=== PATIENT | female | born 1970 | race Caucasian/White ===

== ENCOUNTER → 2021-12-06 12:11 | Outpatient (BNVA) | payer MEDICAID, SELFPAY | PROVIDERS: Family Provider Family Medicine; PCP Family Medicine; Visit Provider Surgery | DX: Z20.822 Contact with and (suspected) exposure to COVID-19 (principal) | CPT/HCPCS: 87635 ==

== ENCOUNTER 2021-12-08 09:12 | Day surgery (SDC) | payer MEDICAID, SELFPAY ==
[2021-12-05 10:48] VITALS: BMI 51.2
--- NOTE | 2021-12-08 10:45 | P.HP_ITS ---
Same Day Surgery H&P Indication for Procedure/HPI DATE OF PROCEDURE: December 08, 2021 CHIEF COMPLAINT/INDICATIONFOR SURGICAL PROCEDURE: Obesity and screening colonoscopy PREOP DIAGNOSIS: Acid reflux associated with morbid obesity and screening colonoscopy PLANNED PROCEDURE: Operation Date: 12/08/21 10:45 Proposed Procedures p EGD/Colon 17385 E66.9(Not Applicable) - Hayden Lo MD s Colonoscopy 26708 Z12.11(Not Applicable) - Hayden Lo MD 08/03/2021. This is a pleasant 51 years old female patient presents to my practice with concerns about her morbid obesity status, current weight 314 pounds with a BMI 57.4. Obesity class III (equal or greater than 40). Obesity related comorbidities hypothyroidism, joint pain, GERD, and anxiety and depression.? Patient reports that she snores at night and she gets bouts of hypersomnia through the day, never been tested for obstructive sleep apnea related to obesity. Previous Bariatric surgery not applicable Patient's quality of life affected in a nonpositive way. Patient has been struggling with weight and has tried different modalities without obvious success, patient comes today showing interest in Bariatric surgery as a sustained option for obesity management Interim history 09/14/2021. She comes today and continues to struggle with her weight, she lost 20 pounds, patient reports that she has been undergoing supervised medical weight loss.? Reports history of GERD associated with morbid obesity status.? Also she is due for screening colonoscopy.? Patient's current weight to 98 pounds and a BMI 54.5 10/14/2021 Patient comes today and she is down to 283 pounds with a BMI 51.7, patient continues to be on a low calorie diet and walks every day.? Patient made up her mind and she decided to proceed with laparoscopic vertical sleeve gastrectomy.? Patient was reminded about the importance to be updated on her Pap smear and mammogram as well as obtaining sleep studies as she has been reporting snoring at night.? Pending psych and nutrition evaluation. Interim history 12/08/2021 Patient comes today for diagnostic EGD due to her acid reflux associated with morbid obesity and screening colonoscopy ROS All systems have been reviewed negative except as per the above or per problem list Medications/Allergies* Home Medications Medication Instructions Recorded Confirmed Type dicyclomine 20 mg tablet 20 mg PO BID 08/03/21 12/05/21 History duloxetine 30 mg capsule,delayed 30 mg PO DAILY 08/03/21 12/05/21 History release (Cymbalta) furosemide 40 mg tablet (Lasix) 40 mg PO BID 08/03/21 12/05/21 History gabapentin 300 mg capsule 300 mg PO TID 08/03/21 12/05/21 History levothyroxine 175 mcg tablet 175 mcg PO DAILY 08/03/21 12/05/21 History (Euthyrox) potassium chloride 20 mEq 20 meq PO DAILY 08/03/21 12/05/21 History tablet,extended release tizanidine 2 mg capsule 2 mg PO TID PRN 08/03/21 12/05/21 History Allergies/Adverse Reactions Allergy/AdvReac Type Severity Reaction Status Date / Time Penicillins Allergy Severe ALGY-Anaphy Verified 10/14/21 13:41 laxis Pertinent History/Comorbid Conditions* Medical History (Updated 08/05/21 @ 06:17 by Hayden Lo MD) BMI 50.0-59.9, adult Morbid obesity Family History (Updated 08/03/21 @ 13:32 by Cheyenne Perales RN) Denies family history of Anesthesia complication Bleeding disorder Pertinent Exam Findings alert, oriented x 3 and operative site marked (Abdominal examination nontender nondistended soft) Recommendations Surgery/Procedure today (EGD and colonoscopy) Other Plans: Plan of care; After thorough history and physical examination and reviewing the chart, plan to perform a diagnostic esophagogastroduodenoscopy and screening colonoscopy with possible biopsy and possible polypectomy. I discussed with the patient in detail the risks,benefits,alternatives and indications.The risk of aspiration, bleeding, soft tissue injury, perforation of the stomach/esophagus/colon and other potential concomitant complications were explained to the patient in details also the potential need for Thoracotomy and or Laproscoy/Laparotomy to repair any related complications including but not limited to colectomy and or Closotomy. The patient understood this well and did agree to proceed. Rationale was carefully and clearly discussed with the patient.Appropriate informed consent have been reviewed and signed Verbal and written Instructions were given to the patient for colonoscopy prep Coding Level of Care Code Acute Supervisory Lifeguard for Jaime Mayo
[2021-12-08 10:47] VITALS: BP 145/79; PULSE 78; RESP 18; TEMP 36.2; O2SAT 94
[2021-12-08] MEDS: sodium chloride 0.9% 1,000 ML 30 ML IV (10:59)
--- NOTE | 2021-12-08 11:05 | ANES.PREANE2 ---
Pre-Anesthetic Assessment Height/Weight: Height 1.57 m Weight 127.006 kg Temp Pulse Resp BP Pulse Ox 97.1 F L 78 18 145/79 94 12/08/21 10:47 12/08/21 10:47 12/08/21 10:47 12/08/21 10:47 12/08/21 10:47 Preop Diagnosis: Acid reflux associated with morbid obesity and screening colonoscopy Operation Date: 12/08/21 10:45 Proposed Procedures p EGD/Colon 73308 E66.9(Not Applicable) - Hayden Lo MD s Colonoscopy 06438 Z12.11(Not Applicable) - Hayden Lo MD Familial anesthetic complications: None Was Beta Geovani taken within 24 hours: N/A Was Clonidine taken within 24 hours: N/A Last intake: Intake Last Liquid Date 12/07/21 Last Liquid Time 20:00 Last Solid Date 12/06/21 Last Solid Time 17:00 Social No alcohol and No tobacco Exam alert, oriented x 3, clear to auscultation bilaterally and regular rate & rhythm Airway Submandibular: within normal limits Cervical ROM: within normal limits Mallampati: Class I History/ROS No significant complaints Pulmonary Exertional Dyspnea and Sleep Apnea CV/HEM Hypertension GI Gastroesophageal Reflux Disease Metabolic Morbid Obesity and Thyroid Disease Musc/skel Osteoarthritis/DJD and None reported Anesthetic Plan ASA status: 3 (Super morbid obese female wih htn and JONATHAN) Anesthesia: Anesthesia Evaluation and MAC Other: I discussed with the patient risks, goals, and benefits of MAC and general anesthesia. We discussed spectrum of MAC anesthesia including conversion to general as well as possibility of recall of intraoperative stimuli including discomfort/pain. Patient agrees to proceed with MAC. Medications/Allergies Home Medications Medication Instructions Recorded Confirmed Last Taken Type dicyclomine 20 mg tablet 20 mg PO BID 08/03/21 12/08/21 11/08/21 History duloxetine 30 mg capsule,delayed 30 mg PO DAILY 08/03/21 12/08/21 12/07/21 History release (Cymbalta) furosemide 40 mg tablet (Lasix) 40 mg PO BID 08/03/21 12/08/21 12/07/21 History gabapentin 300 mg capsule 300 mg PO TID 08/03/21 12/08/21 12/07/21 History levothyroxine 175 mcg tablet 175 mcg PO DAILY 08/03/21 12/08/21 12/07/21 History (Euthyrox) potassium chloride 20 mEq 20 meq PO DAILY 08/03/21 12/08/21 12/07/21 History tablet,extended release tizanidine 2 mg capsule 2 mg PO TID PRN 08/03/21 12/08/21 12/07/21 History Allergies Allergy/AdvReac Type Severity Reaction Status Date / Time Penicillins Allergy Severe ALGY-Anaphy Verified 10/14/21 13:41 laxis Current Medications Generic Name Dose Route Start Last Admin Trade Name Freq PRN Reason Stop Dose Admin Sodium Chloride 1,000 mls @ 30 mls/hr 12/08/21 10:15 12/08/21 10:59 Sodium Chloride 0.9% IV 30 mls/hr .Q24H [place] Administration PFSH Anesthesia Medical History BMI 50.0-59.9, adult Morbid obesity Family History Denies family history of Anesthesia complication Bleeding disorder Data Anesthesia Cardiac Studies: No Data to Display
[2021-12-08 11:41] VITALS: BP 119/84; PULSE 66; RESP 18; TEMP 36.3; O2SAT 99
[2021-12-08 11:46] VITALS: BP 134/79; PULSE 62; RESP 18; O2SAT 96
[2021-12-08 12:00] VITALS: BP 137/79; PULSE 58; RESP 18; TEMP 36.3; O2SAT 96
--- NOTE | 2021-12-08 12:58 | ANE.PACU2 ---
Inpatient post-anesthesia follow up: Airway intact: Yes Vital signs: Temperature 97.3 F Pulse Rate 58 Respiratory Rate 18 Blood Pressure 137/79 Pulse Oximetry 96 Oxygen Delivery Me thod Room Air Oxygen Flow Rate Fraction of Inspir ed Oxygen Hydration adequate: Yes Nausea and vomiting: No Pain level: 1 Mental status: Baseline
[2021-12-09 06:11] LABS: H. Pylori / CLO Test Negative
== END 2021-12-08 12:13 | disposition home or self-care (01) ==
PROVIDERS: Visit Provider Surgery
PROC: 0DJ08ZZ Inspection of Upper Intestinal Tract, Via Natural or Artificial Opening Endoscopic (ICD-10-PCS; CPT 43235; principal; 2021-12-08 10:45)
PROC: 0DJD8ZZ Inspection of Lower Intestinal Tract, Via Natural or Artificial Opening Endoscopic (ICD-10-PCS; CPT 45378; 2021-12-08 10:45)
DX: Z12.11 Encounter for screening for malignant neoplasm of colon (principal); K29.70 Gastritis, unspecified, without bleeding; K29.80 Duodenitis without bleeding; K64.4 Residual hemorrhoidal skin tags; E66.01 Morbid (severe) obesity due to excess calories; Z68.43 Body mass index [BMI] 50.0-59.9, adult; K21.9 Gastro-esophageal reflux disease without esophagitis; I10 Essential (primary) hypertension; G47.33 Obstructive sleep apnea (adult) (pediatric)
CPT/HCPCS: 43239; 45378; 87077; J2704; J7030

== ENCOUNTER → 2022-04-12 09:47 | Outpatient (BNVA) | payer MEDICAID, SELFPAY | PROVIDERS: Visit Provider Surgery | DX: E66.01 Morbid (severe) obesity due to excess calories (principal); Z68.42 Body mass index [BMI] 45.0-49.9, adult; E88.81 Metabolic syndrome and other insulin resistance | CPT/HCPCS: 80053; 80061; 82310; 82607; 82652; 82728; 82746; 83540; 83550; 83735; 83970; 84425; 84443; 84630; 85025; 99024 ==

== ENCOUNTER 2022-04-25 12:43 | Observation (INO) | payer MEDICAID, SELFPAY ==
[2022-04-24 08:53] VITALS: BMI 47.5
--- NOTE | 2022-04-24 13:02 | ANES.PREANE2 ---
Pre-Anesthetic Assessment Height/Weight: Height 1.57 m Weight 117.934 kg Preop Diagnosis: Acid reflux associated with morbid obesity and screening colonoscopy Operation Date: 04/25/22 08:15 Proposed Procedures p Laparoscopic Gastric Sleeve w/ EGD 36302,05834/E66.01(Not Applicable) - Hayden Lo MD Familial anesthetic complications: none Was Beta Geovani taken within 24 hours: N/A Was Clonidine taken within 24 hours: N/A Social No alcohol and No tobacco Exam alert, oriented x 3, clear to auscultation bilaterally and regular rate & rhythm Airway Submandibular: within normal limits Cervical ROM: within normal limits Mallampati: Class II Pulmonary Sleep Apnea GI Gastroesophageal Reflux Disease gastritis Metabolic Morbid Obesity and Thyroid Disease Anesthetic Plan ASA status: 3 Anesthesia: General Medications/Allergies Home Medications Medication Instructions Recorded Confirmed Last Taken Type duloxetine 30 mg capsule,delayed 60 mg PO DAILY 08/03/21 04/24/22 04/24/22 History release (Cymbalta) furosemide 40 mg tablet (Lasix) 40 mg PO BID 08/03/21 04/24/22 04/24/22 History gabapentin 300 mg capsule 300 mg PO TID 08/03/21 04/24/22 04/24/22 History levothyroxine 175 mcg tablet 175 mcg PO DAILY 08/03/21 04/24/22 04/24/22 History (Euthyrox) potassium chloride 20 mEq 20 meq PO DAILY 08/03/21 04/24/22 04/24/22 History tablet,extended release tizanidine 2 mg capsule 4 mg PO TID PRN 08/03/21 04/24/22 04/24/22 History pantoprazole 40 mg tablet,delayed 40 mg PO DAILY #30 tab 03/27/22 04/24/22 04/24/22 Rx release (Protonix) meloxicam 15 mg tablet 15 mg PO DAILY 04/24/22 04/24/22 04/24/22 History Allergies Allergy/AdvReac Type Severity Reaction Status Date / Time Penicillins Allergy Severe ALGY-Anaphy Verified 04/13/22 16:24 laxis codeine Allergy Intermediate ALGY-Hives Verified 04/13/22 16:24 [facility] Anesthesia Medical History BMI 50.0-59.9, adult Morbid obesity Family History Denies family history of Anesthesia complication Bleeding disorder Social History Smoking and tobacco status: never smoked Female Reproductive History Date of last menstrual period: 11/17/20 Data Anesthesia Cardiac Studies: No Data to Display
[2022-04-25] VITALS (23 sets, daily range): BP systolic 130–173; BP diastolic 68–99; PULSE 65–105; RESP 12–19; TEMP 36.1–37.1; O2SAT 90–100
--- NOTE | 2022-04-25 07:00 | P.ANESUD_ITS ---
Pre-Anesthetic Update Pre-Anesthetic Assessment: Date of Surgery/Procedure: 04/25/22 Preop Thelma gnosis: Obesity and screening colonoscopy Proposed Procedure: Operation Date: 04/25/22 08:15 Proposed Procedures p Laparoscopic Gastric Sleeve w/ EGD 44945,33822/E66.01(Not Applicable) - Hayden Lo MD Any changes to Pre-Anesthetic Assessment?: No Last Intake: Intake Last Liquid Date 04/24/22 Last Liquid Time 22:00 Last Solid Date 04/04/22 Vitals: Temperature 97.0 F L 04/25/22 06:48 Temperature Source Temporal Artery S can 04/25/22 06:48 Pulse Rate 85 04/25/22 06:48 Respiratory Rate 18 04/25/22 06:48 Blood Pressure 130/84 04/25/22 06:48 Blood Pressure Reanna n 99 04/25/22 06:48 Pulse Oximetry 98 04/25/22 06:48 Oxygen Delivery Me thod 04/25/22 06:48 Exam: Pre-Anes Outpt Exam: alert, oriented x 3, clear to auscultation bilaterally and regular rate & rhythm Cardiac Studies: No Data to Display
[2022-04-25] MEDS: scopolamine 1.5 Patch 1 PATCH TRANSDERMA (07:06)
[2022-04-25] MEDS: sodium chloride 0.9% 1,000 ML 999 ML IV (07:07)
[2022-04-25] MEDS: acetaminophen 1,000 MG/100 ML PIGGYBACK 400 MG IV (07:08)
[2022-04-25] MEDS: pantoprazole 40 mg SDV IVP (07:08)
[2022-04-25] MEDS: heparin 5,000 unit/mL INJ 1 mL 5000 UNIT SUBCUT (07:12)
--- NOTE | 2022-04-25 08:23 | PC.NURSE ---
Nurse present in room for convo with Dr Lo and patient discussing options to proceed with procedure or wait some time for having more time on clear liquid diet. Patient elected to proceed with procedure today despite risk of aborting due to size of liver. Patient verbalized understanding.
--- NOTE | 2022-04-25 08:24 | W.PM.OPSUD ---
Surgery/Procedure H&P Update DATE OF PROCEDURE: April 25, 2022 DATE H&P PERFORMED: 04/12/22 H&P UPDATE INFORMATION: I have reviewed H&P completed within last 30 days, I have examined patient prior to procedure and Changes to prior documentation as noted here (Patient is down to 256 pounds) CHANGES TO PREVIOUS DOCUMENTATION: Patient understands that if the liver is enlarged that may hinder safe procedure I may abort the procedure. She understands the plan of care and agrees on that. PREOP DIAGNOSIS: Obesity PRIMARY INDICATION FOR PROCEDURE: The same PLANNED PROCEDURE: Operation Date: 04/25/22 08:15 Proposed Procedures p Laparoscopic Gastric Sleeve w/ EGD [id number],[id number]/E66.01(Not Applicable) - Hayden Lo MD
[2022-04-25] MEDS: ciprofloxacin 400 MG/200 ML PREMIX 200 MG IV (08:25)
--- NOTE | 2022-04-25 11:58 | PM.OP ---
Operative Report Date of procedure: April 25, 2022 Pre-op diagnosis: Preop Diagnosis Obesity Post-op findings: Extensive adhesions towards the pylorus with extensive vascularization Procedure done: 1-Laparoscopic vertical sleeve gastrectomy and intraoperative EGD 2-Extensive adhesiolysis exceeded 1 hour of the operative time Implants: Surgicel towards the distal part of the stomach Specimens removed/disposition: Subtotal gastrectomy with gastric sleeve, sutures marked proximal Surgeon: Hayden Lo MD Housekeeper Nanny: Surgical techmelissa Cruz Circulating nurse Salo Anesthesia: General (Patrick weems and Dr. Matt) Estimated blood loss (mL): 100 IV fluids (mL): 800 Urine output (mL): 250 Procedure: Patient was identified in the holding area, appropriate pharmacologic DVT prophylaxis was given and preoperative IV fluid hydration, patient was then taken to the operating room where the patient was placed in supine position, intubated by anesthesia prophylactic antibiotics were given per protocol, Time-out was done verifying the patient's name/date of /planned procedure and destination after the procedure, all were in agreement.SCDs confirmed to be functioning, and beta zahra protocol was confirmed. A Contreras catheter was inserted by the circulating nurse revealing clear urine. A foot board was applied to secure the patient while the patient is placed in reversed Trendelenburg, all pressure points were padded, and the patient was appropriately secured to the table, anesthesia was asked to rotate the table back and forth to verify that the patient is appropriately secured, and that was the case. The abdomen was prepped and draped under the usual sterile technique. A transverse incision was made with a 15 blade scalpel approximately 15 cm below the xiphoid process and 3 cm left of the midline. A 5 mm optical trocar port was placed under direct vision into the peritoneal cavity without initial evidence of injury to peritoneal structures upon entry. The peritoneal cavity was insufflated with carbon dioxide gas up to 15 mmHg pressure. A 45? angle laparoscopy was placed through the port into the peritoneal cavity there was no significant blood, fluid, or evidence of intra-abdominal injury under direct visualization, Longer trocars were then used; a 12 mm trocar port was placed in the right epigastric region and a fourth 5 mm trocar port was placed in the mid epigastric region more caudad than and medial to the previous port. A 5 mm trocar port was placed in the left lateral flank and additional 5 mm trocar was inserted midway between the left lateral flank trocar and the initial 5 mm trocar. There after the index 5 mm trocar was switched to a 12 mm trocar under direct visualization after extending the skin incision. I lifted the omentum up to make sure there were no injuries encountered from the initial trocar insertion, the underlying transverse colon and small bowel viscera were normal. Noticed that the patient had extensive adhesions towards the right side of the upper abdomen and towards the pyloric area from previous open cholecystectomy, extensive adhesiolysis took place under direct visualization using Enseal device exceeding 1 hour of the operative time. There was a bleeding vessel towards the the pylorus that was clipped using 5 mm clips and hemostasis was appropriately secured. And pieces of Surgicel was kept at the end of the procedure at this area. A subxiphoid stab incision was made and dissection into the peritoneum with 5 mm obturator. A grasping laparoscopic clamp was inserted through here and clamped to the right alex of the diaphragm to elevate the liver for the entirety of the case. All trocars inserted were long arc trocars due to the thick layer of subcutaneous tissue that the patient has.Patient was then placed in the reversed Trendelenburg. Following this, the greater curvature of the stomach was freed from the omentum using the ENSEAL device. This division included the short gastric vessels proximally. This dissection was carried from approximately 4 cm-6 cm proximal to the pylorus and extending all the way up to the angle of Hiss. During this process the posterior aspect of the stomach was mobilized from the underlying peritoneum and the posterior aspect of the stomach was well exposed. With the greater curvature of the stomach exposed from within 4-6 cm of the pylorus and extending to the angle of Hiss, which also included the posterior stomach, a 40 Burkinan standard template passed under direct vision down the esophagus, stomach, and into the first part of the duodenum by the anesthesia provider and under direct guidance and visualization by me, via the laparoscopy. Using the template 40 Burkinan aligned along the lesser curvature of the stomach and all the way to the first part of the Duodenum, the 40 Burkinan Bougie was used as a template the laparoscopic vertical gastric sleeve was performed starting from a point about 5 cm from the pylorus along the greater curvature. Using the [place] Laparoscopic KERON linear cutting stapler with [place] Endopath enforcement, a series of susannah were used to transect the stomach in a vertical fashion along the left side of the template. Through the entire division of the stomach using the staplers, the template was always checked to be in good place and well aligned to the lesser curvature while dividing the stomach. This was carried all the way to the angle of Hiss. [place] 60 mm Green loads were used for the distal third of the stomach and Gold loads were used for the more proximal part of the stomach and then blue loads with reinforcement. All staplers were reinforced by Endopath. The staple line along the remaining tubularized stomach was tested for leaks and bleeding under direct vision as the 40 Burkinan template was exchanged (and there was no evidence of blood on the tip of the template) by a standard diagnostic EGD via the mouth by my me after I scrubbed out, insufflation was achieved using CO2 gas and the staple line submerged under saline, meanwhile a clamp was applied distally onto the end of the tubularized stomach to allow insufflation test for leak. There was no evidence of leak .There was adequate hemostasis along the staple line.EGD was taken out at this point after deflation of the tubularized stomach. I scrubbed the back in. The transected partial stomach, which included the greater curvature, was removed from the peritoneum through the first 12 mm trocar site, and was sent for permanent pathology. Prior to closure of the fascia. A final look laparoscopy identified no injuries or bleeding. Bilateral TAP (transversus abdominous plain peripheral nerve block) block using Exparel 20 mL Exparel,40 ml Normal saline,20 ml bupivacaine 0.25% 30 mL on each side injected, 20 mL injected the port sites. An interrupted #1 PDS suture on a granny needle suture passer was used to close the right epigastric and the other 12 mm trocar left of the midline fascial defects under direct visualization. The other trocars were removed under direct vision and no evidence of bleeding was identified. The pneumoperitoneum was decompressed. All skin incisions were irrigated copiously with saline, then closed with susannah, followed by application of sterile dressings. The patient was extubated and taken to the recovery room with normal vital signs. Contreras catheter was maintained All counts of instruments, sponges and needles were completed at the end of the procedure I was present for the whole entire procedure
[2022-04-25] MEDS: ondansetron 2 mg/ML SDV 2 mL 4 MG IVP (12:46)
--- NOTE | 2022-04-25 17:06 | ANE.PACU2 ---
Inpatient post-anesthesia follow up: Airway intact: Yes Vital signs: Temperature 98.0 F Pulse Rate 101 Respiratory Rate 12 Blood Pressure 132/74 Pulse Oximetry 92 Oxygen Delivery Me thod Room Air Oxygen Flow Rate 6 Fraction of Inspir ed Oxygen Hydration adequate: Yes Nausea and vomiting: No Pain level: 1 Mental status: Baseline
[2022-04-25] MEDS: lactated ringers 1,000 ML 125 ML IV (20:55)
[2022-04-26] VITALS (7 sets, daily range): BP systolic 132–151; BP diastolic 74–89; PULSE 90–102; RESP 12–16; TEMP 36.7–37.7; O2SAT 91–92
[2022-04-26] MEDS: heparin 5,000 unit/mL INJ 1 mL 5000 UNIT SUBCUT ×2 (05:00→13:46)
[2022-04-26] MEDS: lactated ringers 1,000 ML 125 ML IV (05:00)
[2022-04-26 05:10] LABS: Hematocrit 40.9 % (37.0-47.0); Hemoglobin 13.7 g/dL (11.5-15.3)
[2022-04-26 05:28] LABS: Anion Gap 14.2 (5-19); Blood Urea Nitrogen 20 mg/dL (6-20); Calcium 9.3 mg/dL (8.5-10.5); Carbon Dioxide 26 mmol/L (22-29); Chloride 103 mmol/L (98-107); Glomerular Filtration Rate 65.5 mL/min (90-130); Glucose 121 mg/dL (65-115); Osmolality Calculated 292 mOsm/kg (285-295); Potassium 4.2 mmol/L (3.5-5.1); Sodium 139 mmol/L (136-145)
[2022-04-26 06:30] LABS: Glucose Point of Care 118 mg/dL (70-110)
--- NOTE | 2022-04-26 07:24 | P.PN_ITS ---
Subjective Subjective: Patient overall doing well and denies complaints. Adequate urine output and stable vital signs. Medications: Reviewed: Yes Vitals/I&O/Wt Last Vital Signs Temp 99.8 F H 04/26/22 04:52 Pulse 90 04/26/22 06:00 Resp 16 04/26/22 04:52 BP 151/88 04/26/22 04:52 Pulse Ox 91 04/26/22 04:52 04/25/22 04/26/22 04/26/22 22:59 06:59 14:59 Intake Total 1100 / 1500 1200 / 2700 Output Total 1350 / 1950 Balance 1100 / 900 -150 / 750 Weight last 48 hrs Weight 261 lb 11.2 oz Weight 258 lb Weight 260 lb Physical Exam Narrative: Patient is conscious alert oriented X3 No apparent distress BMI 48 Head and neck examination PERRLA no masses no cervical lymphadenopathy no jaundice Cardiac examination audible S1-S2 no murmurs no gallops no arrhythmias Chest is clear bilateral,abscence of Rhonchi or wheezes,no surgical emphysema Abdomen nontender except mildly at the incision sites, nondistended soft no organomegaly guarding or rigidity/no signs of peritonitis Dressing in place Extremities no cyanosis no clubbing no edema Urinary Catheter Management: Contreras: Cath Placed During This Visit: yes Reason for Continuing Indwelling Catheter: Acute Urinary Retention or Obstruction Urinary Catheter Date of Insertion: 04/25/22 Urinary Catheter Time of Insertion: 08:35 Data : 04/26/22 04:34 04/26/22 04:34 A&P Assessment and plan (1) S/P laparoscopic sleeve gastrectomy: 52 years old female patient status post laparoscopic vertical sleeve gastrectomy 04/25/2022 Plan Encourage ambulation Upper GI study showed normal findings. We will start the patient on post bariatric phase 1 diet Incentive spirometer every hour Assurance and education All questions have been answered and all concerns have been addressed to patie nt's satisfaction. Status: Acute Attestations Medical Necessity Statement*: Patient requiring inpatient hospitalization passing 2 midnights for perioperative care Coding Level of Care Code Acute Wildlife And Game Protector for Chg Fwd Diagnoses S/P laparoscopic sleeve gastrectomy Z98.84
--- NOTE | 2022-04-26 08:00 | FL_ITS ---
WS: [id number] Upper GI series post gastric sleeve, 04/26/2022 Clinical Data: Status Post Gastric Sleeve Comparison: None. Fluoroscopy time: 0.5 # of spot films: 4 Findings: Gastrografin contrast material flowed normally through the esophagus. There were tertiary contraction s. The barium passed into the reduced stomach. There are clips adjacent to the stomach. There is no e xtravasation. The barium entered the duodenum without obstruction or hesitation. FL/FL upper GI series [id number] Impression: Satisfactory post gastric sleeve examination with no obstruction or extravasati on.
[2022-04-26] MEDS: ondansetron 2 mg/ML SDV 2 mL 4 MG IVP (09:31)
--- NOTE | 2022-04-26 10:58 | PC.CHAP ---
Pastoral Care Encounter/Spiritual Assessment Type of Contact [] Declined glue mixer visit [] Patient/Family/Request visit [] Outpatient visit [] Follow-up visit [] Physician referral [] Code/Alert [x] Routine visit [] Staff referral [] Actively dying [] Patient sleeping [] Family support [] [] Out of room [] Palliative care [] [x] Receiving care in room [] Pre-surgical visit [] Trauma [] Long length of stay [] ICU visit [] Other: Relational/Emotional Strength [] Patient feels connected with others/family/visitors/staff [] Distress [] Loneliness/isolation [] Abandonment Spirituality of Patient [] Person of Vidhi [] Attends Hindu of their Vidhi [] Believes in Prayer [] Reads Bible or Anabaptist materials [] There are Spiritual issues to be addressed Beck Operator Interventions [] Prayer [] Active listening [] Non-anxious presence [] Spiritual/emotional support [] Crisis/trauma care [] Spiritual counseling [] Bereavement support [] Provided bereavement packet [] Provided Bible/devotional materials [] Provided toy/stuffed animal, coloring book to patient or family member [] Provided Communion [] Anointing/[place]son [] Salvation [] Completed spiritual assessment [] Other: Impact on Illness or Injury [] Angry [] Fearful [] Anxious [] Often cries [] Exhaustion [] Unable to work [] Unable to attend tenriism [] Unable to walk/stand [] Unable to read [] Unable to drive [] Unable to eat/drink [] Unable to sleep [] Unable to be with family [] Patient intubated [] Other: Summary Time spent with patient
[2022-04-26] MEDS: diatrizoate meglumine 30 mL Sol PO (12:02)
[2022-04-26] MEDS: famotidine 20 mg/2 mL INJ IVP (13:46)
--- NOTE | 2022-04-26 17:49 | P.DS_ITS ---
Discharge Providers Date of Admission: 04/25/22 12:43 Date of Discharge: April 26, 2022 Attending Provider at Admission: Hayden Lo MD Attending Provider at Discharge: Hayden Lo MD Diagnoses at Discharge Discharge Diagnosis (1) S/P laparoscopic sleeve gastrectomy: Status: Resolved Reason for Visit Reason for Visit: Brief History: 08/03/2021. This is a pleasant 51 years old female patient presents to my practice with concerns about her morbid obesity status, current weight 314 pounds with a BMI 57.4. Obesity class III (equal or greater than 40). Obesity related comorbidities hypothyroidism, joint pain, GERD, and anxiety and depression.? Patient reports that she snores at night and she gets bouts of hypersomnia through the day, never been tested for obstructive sleep apnea related to obesity. Previous Bariatric surgery not applicable Patient's quality of life affected in a nonpositive way. Patient has been struggling with weight and has tried different modalities without obvious success, patient comes today showing interest in Bariatric surgery as a sustained option for obesity management Interim history 09/14/2021. She comes today and continues to struggle with her weight, she lost 20 pounds, patient reports that she has been undergoing supervised medical weight loss.? Reports history of GERD associated with morbid obesity status.? Also she is due for screening colonoscopy.? Patient's current weight to 98 pounds and a BMI 54.5 10/14/2021 Patient comes today and she is down to 283 pounds with a BMI 51.7, patient continues to be on a low calorie diet and walks every day.? Patient made up her mind and she decided to proceed with laparoscopic vertical sleeve gastrectomy.? Patient was reminded about the importance to be updated on her Pap smear and mammogram as well as obtaining sleep studies as she has been reporting snoring at night.? Pending psych and nutrition evaluation. 12/21/2021 Patient comes today status post EGD and colonoscopy and was found to have: Gastritis and duodenitis, colonoscopy showed normal findings except small external hemorrhoids.? The patient was educated that the prep was fair and smaller polyps could have been missed recommend to repeat the colonoscopy over the coming couple of years. Undergone communication by [facility] for psychology and nutrition consulted and apparently there is a financial issue according to her that she would not afford their fees.? I explained for the patient it is a [facility] and I did educate? patient that this is something that she would need to discuss with them further. Patient is down to 269 pounds and a BMI of 49.1, and continues to show interest in weight loss surgery. 04/12/2022 Patient comes today and she has been cleared by psychology service and deemed appropriate to proceed with bariatric surgery as she was found to be an appropriate candidate for bariatric surgery.? Based on medical necessity and patient's associated multiple medical comorbidities she was found to be appropriate candidate for bariatric surgery particularly in the form of laparoscopic vertical sleeve gastrectomy.? Patient's current weight to 60 pounds and a BMI 47.6 04/26/2022 Patient undergone laparoscopic vertical sleeve gastrectomy after she met the appropriate criteria for surgery and based on medical necessity. Hospital Course Hospital Course Patient undergone uneventful laparoscopic vertical sleeve gastrectomy and extensive adhesiolysis on 04/25/2022. Continue to have stable vital signs and adequate urine output. Contreras catheter was removed earlier today and patient maintained to void urine without issues. Undergone an upper GI study that did show Findings: Gastrografin contrast material flowed normally through the esophagus. There were tertiary contractions. The barium passed into the reduced stomach. There are clips adjacent to the stomach. There is no extravasation. The barium entered the duodenum without obstruction or hesitation. NV/NV upper GI series [id number] Impression: ? Satisfactory post gastric sleeve examination with no obstruction or extravasation. Tolerating p.o. intake and has been ambulatory. Continue to be on pharmacological mechanical DVT prophylaxis. Appropriate blood work. Patient met the appropriate and safe criteria for discharge home Physical Exam Narrative: Patient is conscious alert oriented X3 No apparent distress BMI 48 Head and neck examination PERRLA no masses no cervical lymphadenopathy no jaundice Abdomen nontender except mildly at the incision sites, nondistended soft no organomegaly guarding or rigidity/no signs of peritonitis Dressing in place Extremities no cyanosis no clubbing no edema Urinary Catheter Management: Contreras: Cath Placed During This Visit: yes, but has since been removed by the nurse Reason for Continuing Indwelling Catheter: Decision to DC Catheter Urinary Catheter Date of Insertion: 04/25/22 Urinary Catheter Time of Insertion: 08:35 Date Urinary Catheter Removed: 04/26/22 Time Urinary Catheter Discontinued: 08:26 Discharge Data Studies Completed and Pending Completed Studies During Hospitalization Category Date Time Status [place] upper GI series [id number] Routine Exams 04/26/22 08:00 Completed Pending at discharge Category Date Time Status ES surgery / GI images Routine Exams 04/25/22 07:27 Taken Basic Metabolic Panel [facility] Lab 04/27/22 04:00 Ordered Basic Metabolic Panel AM [facility] Lab 04/28/22 04:00 Ordered Hemoglobin and Hematocrit AM [facility] Lab 04/27/22 04:00 Ordered Hemoglobin and Hematocrit AM LABS Lab 04/28/22 04:00 Ordered Pathology: Surgical [PTH] Routine Pth 04/25/22 12:17 Received Radiology Impressions Upper GI Series 04/26/22 08:00 Impression: Satisfactory post gastric sleeve examination with no obstruction or extravasation. Laboratory Results Hgb 13.7 g/dL (11.5-15.3) 04/26/22 04:34 Hct 40.9 % (37.0-47.0) 04/26/22 04:34 Sodium 139 mmol/L (136-145) 04/26/22 04:34 Potassium 4.2 mmol/L (3.5-5.1) 04/26/22 04:34 Chloride 103 mmol/L (98-107) 04/26/22 04:34 Carbon Dioxide 26 mmol/L (22-29) 04/26/22 04:34 Anion Gap 14.2 (5-19) 04/26/22 04:34 BUN 20 mg/dL (6-20) 04/26/22 04:34 Creatinine 0.9 mg/dL (0.5-0.9) 04/26/22 04:34 GFR Calculation 65.5 mL/min (90-130) L 04/26/22 04:34 Glucose 121 mg/dL (65-115) H 04/26/22 04:34 POC Glucose 118 mg/dL (70-110) H 04/26/22 06:18 Calculated Osmolality 292 mOsm/kg (285-295) 04/26/22 04:34 Calcium 9.3 mg/dL (8.5-10.5) 04/26/22 04:34 Procedures Performed Post-op findings: Extensive adhesions towards the pylorus with extensive vascularization Procedure done: 1-Laparoscopic vertical sleeve gastrectomy and intraoperative EGD 2-Extensive adhesiolysis exceeded 1 hour of the operative time Implants: Surgicel towards the distal part of the stomach Specimens removed/disposition: Subtotal gastrectomy with gastric sleeve, sutures marked proximal Surgeon: Hayden Lo MD Tiler'S Assistant: Surgical kranthi Cruz Circulating nurse Salo Anesthesia: General (Patrick weems and Dr. Matt) Estimated blood loss (mL): 100 IV fluids (mL): 800 Urine output (mL): 250 Procedure: Patient was identified in the holding area, appropriate pharmacologic DVT prophylaxis was given and preoperative IV fluid hydration, patient was then taken to the operating room where the patient was placed in supine position, intubated by anesthesia prophylactic antibiotics were given per protocol, Time- out was done verifying the patient's name/date of /planned procedure and destination after the procedure, all were in agreement.SCDs confirmed to be functioning, and beta zahra protocol was confirmed. A Contreras catheter was inserted by the circulating nurse revealing clear urine. A foot board was applied to secure the patient while the patient is placed in reversed Trendelenburg, all pressure points were padded, and the patient was appropriately secured to the table, anesthesia was asked to rotate the table back and forth to verify that the patient is appropriately secured, and that was the case. The abdomen was prepped and draped under the usual sterile technique.? A transverse incision was made with a 15 blade scalpel approximately 15 cm below the xiphoid process and 3 cm left of the midline. A 5 mm optical trocar port was placed under direct vision into the peritoneal cavity without initial evidence of injury to peritoneal structures upon entry. The peritoneal cavity was insufflated with carbon dioxide gas up to 15 mmHg pressure. A 45? angle laparoscopy was placed through the port into the peritoneal cavity there was no significant blood, fluid, or evidence of intra- abdominal injury under direct visualization, Longer trocars were then used; a 12 mm trocar port was placed in the right epigastric region and a fourth 5 mm trocar port was placed in the mid epigastric region more caudad than and medial to the previous port. A 5 mm trocar port was placed in the left lateral flank and additional 5 mm trocar was inserted midway between the left lateral flank trocar and the initial 5 mm trocar.? There after the index 5 mm trocar was switched to a 12 mm trocar under direct visualization after extending the skin incision. I lifted the omentum up to make sure there were no injuries encountered from the initial trocar insertion, the underlying transverse colon and small bowel viscera were normal. Noticed that the patient had extensive adhesions towards the right side of the upper abdomen and towards the pyloric area from previous open cholecystectomy, extensive adhesiolysis took place under direct visualization using Enseal device exceeding 1 hour of the operative time.? There was a bleeding vessel towards the the pylorus that was clipped using 5 mm clips and hemostasis was appropriately secured.? And pieces of Surgicel was kept at the end of the procedure at this area. A subxiphoid stab incision was made and dissection into the peritoneum with 5 mm obturator.? A grasping laparoscopic clamp was inserted through here and clamped to the right alex of the diaphragm to elevate the liver for the entirety of the case.? All trocars inserted were long arc trocars due to the thick layer of subcutaneous tissue that the patient has.Patient was then placed in the reversed Trendelenburg. Following this, the greater curvature of the stomach was freed from the omentum using the ENSEAL device.? This division included the short gastric vessels proximally.? This dissection was carried from approximately 4 cm-6 cm proximal to the pylorus and extending all the way up to the angle of Hiss. During this process the posterior aspect of the stomach was mobilized from the underlying peritoneum and the posterior aspect of the stomach was well exposed. With the greater curvature of the stomach exposed from within 4-6 cm of the pylorus and extending to the angle of Hiss, which also included the posterior stomach, a 40 Salvadorean standard template passed under direct vision down the esophagus, stomach, and into the first part of the duodenum by the anesthesia provider and under direct guidance and visualization by me, via the laparoscopy. Using the template 40 Salvadorean aligned along the lesser curvature of the stomach and all the way to the first part of the Duodenum, the 40 Salvadorean Bougie was used as a template the laparoscopic vertical gastric sleeve was performed starting from a point about 5 cm from the pylorus along the greater curvature. Using the [employer] Laparoscopic KERON linear cutting stapler with AccuRevpath enforcement, a series of susannah were used to transect the stomach in a vertical fashion along the left side of the template. Through the entire division of the stomach using the staplers, the template was always checked to be in good place and well aligned to the lesser curvature while dividing the stomach. This was carried all the way to the angle of Hiss. [place] 60 mm Green loads were used for the distal third of the stomach and Gold loads were used for the more proximal part of the stomach and then blue loads with reinforcement. All staplers were reinforced by Endopath. The staple line along the remaining tubularized stomach was tested for leaks and bleeding under direct vision as the 40 Salvadorean template was exchanged (and there was no evidence of blood on the tip of the template) by a standard diagnostic EGD via the mouth by my me after I scrubbed out, insufflation was achieved using CO2 gas and the staple line submerged under saline, meanwhile a clamp was applied distally onto the end of the tubularized stomach to allow insufflation test for leak. There was no evidence of leak .There was adequate hemostasis along the staple line.EGD was taken out at this point after deflation of the tub ularized stomach. I scrubbed the back in. The transected partial stomach, which included the greater curvature, was removed from the peritoneum through the first 12 mm trocar site, and was sent for permanent pathology. Prior to closure of the fascia.? A final look laparoscopy identified no injuries or bleeding. Bilateral TAP (transversus abdominous plain peripheral nerve block) block using Exparel 20 mL Exparel,40 ml Normal saline,20 ml bupivacaine 0.25% 30 mL on each side injected, 20 mL injected the port sites. An interrupted #1 PDS suture on a granny needle suture passer was used to close the right epigastric and the other 12 mm trocar left of the midline fascial defects under direct visualization. The other trocars were removed under direct vision and no evidence of bleeding was identified. The pneumoperitoneum was decompressed. All skin incisions were irrigated copiously with saline, then closed with susannah, followed by application of sterile dressings. The patient was extubated and taken to the recovery room with normal vital signs. Contreras catheter was maintained All counts of instruments, sponges and needles were completed at the end of the procedure I was present for the whole entire procedure Vitals Last Vital Signs Temp 98.0 F 04/26/22 16:00 Pulse 101 H 04/26/22 16:00 Resp 12 04/26/22 16:00 BP 132/74 04/26/22 16:00 Pulse Ox 92 04/26/22 16:00 Discharge Plan Discharge Patient Disposition: Home Condition: Stable Prescriptions: New Lovenox 40 mg/0.4 mL syringe 40 mg SUBCUT DAILY 10 Days Qty: 4 0RF Rx Instructions: First dose to start on 04/27/2022 hydrocodone-acetaminophen 5-325 mg tablet 1 tab PO Q6H PRN (Reason: pain) Qty: 28 0RF ondansetron 4 mg tablet,disintegrating 4 mg PO Q6H PRN (Reason: nausea and vomiting) Qty: 30 1RF scopolamine base 1 mg over 3 days patch 3 day 1 patch transdermal Q3D PRN (Reason: nausea and vomiting) Qty: 4 1RF Continued gabapentin 300 mg capsule 300 mg PO TID 0RF duloxetine [Cymbalta] 30 mg capsule,delayed release(DR/EC) 60 mg PO DAILY 0RF furosemide [Lasix] 40 mg tablet 40 mg PO BID 0RF tizanidine 2 mg capsule 4 mg PO TID PRN (Reason: Pain) 0RF potassium chloride 20 mEq tablet extended release 20 meq PO DAILY 0RF levothyroxine [Euthyrox] 175 mcg tablet 175 mcg PO DAILY 0RF Protonix 40 mg tablet,delayed release (DR/EC) 40 mg PO DAILY Qty: 30 3RF Discontinued meloxicam 15 mg tablet 15 mg PO DAILY 0RF Discharge Orders: Discharge Order (Routine); Ordered 04/26/22 Ordered By: Hayden Lo Referrals: Hayden Lo MD [Physician] - (Return to bariatric surgery office in 1 week) Discharge Diet: As Directed Discharge Activity: Limit activity as instructed Patient Instructions: Opioid Safety, Enoxaparin (By injection), Constipation - Adult Activity Restrictions/Additional Instructions: Post discharge instructions: 1. Patient can shower after 48 hours from surgery. Do not soak in bathtub, swimming pool or hot tub for 4 weeks after surgery. 2. Leave incisions open to air, do not apply triple antibiotic ointment or medications on the incisions. 3. Up and walking as tolerated Activity 4. Do not lift more than 5 pounds first 2 weeks after surgery and not more than 25 pounds 6 to 8 weeks after surgery. Driving 5. Do not operate heavy machinery or drive while using pain medications Diet Stage 1 When do I start this stage? The day after your surgery (Day 1). You will get to start this stage after you pass the upper GI study and/or methylene blue test. How long will I be on this stage? Day 1 thru day 2 or until you are discharged from the hospital. Goals: ? Drink 4 to 6 ounces of fluid per hour. ? Aim for a total of 64 ounces of fluid daily. Add the following food/beverages to your diet: Clear broth or bouillon 100% no sugar added apple, cranberry, or grape juice. Dilute with 1 part juice and 1 part water. No citrus justice (i.e. organe juice, grapefruit juice, etc.) Limit to 8 ounces per or less per day. Tea (do not add milk) Coffee (do not add milk or creamer) Sugar-free gelatin Sugar-free popsicles Sugar-free flavored beverages (Crystal Light?, Sugar-Free Earnest-Aid?, Propel?, PowerAde Zero?, Vitamin Water 10?, Fruit?0?, Sob? Lean?, etc.) Artificial sweetener of your choice Stage 2 When do I start this stage? Day 3 (or once you are discharged from the hospital) How long will I be on this stage? Day 3 thru Day 13 Goals: ? Drink 4 to 6 ounces of fluid per hour. ? Aim for a total of 64 ounces of fluid daily. ? Aim to meet protein goals with liquid protein supplements Add the following food/beverages to your diet: Protein supplements (thin, water-based supplement may be easier to digest at first while milk-based supplements may feel ``heavy?? and uncomfortable at first) Milk: 1%, skim, light soy milk, or lactose-free milk Pain control Patient was given a prescription for hydrocodone Nausea Nausea is common after surgery, take nausea medications as needed and stay on a liquid bland diet until nausea resolves. Breathing Patient was encouraged and was given incentive spirometer to use at home 10 times an hour while awake Call the office at [phone] during office hours or go the Emergency Room after hours for - ?Fever to 100.4 or greater ?Shaking chills ?Pain that increases over time ?Redness, warmth, or pus draining from incision sites ?Persistent nausea or inability to take in liquids Discharge Attestations Time Spent in Discharge Care*: greater than 30 min Specific Discharge Activities: educating patient and educating and/or supporting family/caregiver Status at Discharge: Cognitive status at discharge: cognitively intact , Behavioral status at discharge: cooperative , Functional status at discharge: independent ambulation , Overall status at discharge: patient is progressing back to baseline Quality Metrics Clinical Quality Measures [ No reported AMI, CVA or VTE this stay] Coding Level of Care Code Acute Chg FW DC note Diagnoses S/P laparoscopic sleeve gastrectomy Z98.84
== END 2022-04-26 19:15 | disposition home or self-care (01) ==
LOC: MEDSURG 12:44
PROVIDERS: Admitting Provider Surgery; Visit Provider Surgery
PROC: 0DB64Z3 Excision of Stomach, Percutaneous Endoscopic Approach, Vertical (ICD-10-PCS; CPT 43775; principal; 2022-04-25 08:05)
PROC: 0DJ08ZZ Inspection of Upper Intestinal Tract, Via Natural or Artificial Opening Endoscopic (ICD-10-PCS; CPT 43235; 2022-04-25 08:05)
DX: E66.01 Morbid (severe) obesity due to excess calories (principal); Z68.42 Body mass index [BMI] 45.0-49.9, adult; K21.9 Gastro-esophageal reflux disease without esophagitis; G47.30 Sleep apnea, unspecified
CPT/HCPCS: 43235; 43775; 36415; 36416; 51702; 74240; 80048; 82962; 85014; 85018; 88309; 96372; C9113; C9290; G0378; J0330; J0744; J1100; J1644; J1885; J2250; J2405; J2704; J2710; J3010; J3490; J7030; Q9963

== ENCOUNTER → 2022-05-01 08:29 | Outpatient (BNVA) | payer MEDICAID, SELFPAY | PROVIDERS: Visit Provider Surgery | DX: Z98.84 Bariatric surgery status (principal) | CPT/HCPCS: 99024 ==

== ENCOUNTER → 2022-05-03 09:28 | Outpatient (BNVA) | payer MEDICAID, SELFPAY | PROVIDERS: Visit Provider Surgery | DX: Z98.84 Bariatric surgery status (principal) | CPT/HCPCS: 99024 ==

== ENCOUNTER → 2022-05-10 13:23 | Outpatient (BNVA) | payer MEDICAID, SELFPAY | PROVIDERS: Visit Provider Surgery | DX: Z98.84 Bariatric surgery status (principal) | CPT/HCPCS: 99024 ==

== ENCOUNTER → 2022-05-24 13:48 | Outpatient (BNVA) | payer MEDICAID, SELFPAY | PROVIDERS: Visit Provider Surgery | DX: Z98.84 Bariatric surgery status (principal) | CPT/HCPCS: 99024 ==

== ENCOUNTER → 2022-06-21 14:57 | Outpatient (BNVA) | payer MEDICAID, SELFPAY | PROVIDERS: Visit Provider Surgery | DX: Z98.84 Bariatric surgery status (principal) | CPT/HCPCS: 99024 ==

== ENCOUNTER 2022-07-26 13:17 | Outpatient (CLI) | payer MEDICAID, SELFPAY ==
[2022-07-26 13:55] LABS: Basophils # 0.1 10^3/uL (0.0-0.1); Basophils % 0.8 %; Eosinophils # 0.1 10^3/uL (0.0-0.8); Eosinophils % 2.2 %; Hematocrit 41.9 % (37.0-47.0); Hemoglobin 13.8 g/dL (11.5-15.3); Lymphocytes # 1.9 10^3/uL (0.8-4.8); Lymphocytes % 32.4 %; Mean Corpuscular HGB Conc 32.9 g/dL (30.0-36.0); Mean Corpuscular Hemoglobin 30.2 pg (28.0-34.0); Mean Corpuscular Volume 91.7 fl (81-99); Mean Platelet Volume 9.8 fL (7.4-10.4); Monocytes # 0.5 10^3/uL (0.2-0.9); Monocytes % 9.1 %; Neutrophils # 3.29 10^3/uL (1.8-7.7); Neutrophils % 55.3 %; Nucleated Red Blood Cells % 0 %; Platelet Count 275 10^3/cmm (130-400); Red Blood Count 4.57 10^6/uL (4.1-5.3); Red Cell Distribution Width 13.2 % (12.1-15.1)
[2022-07-26 14:21] LABS: Calcium 9.4 mg/dL (8.5-10.5)
[2022-07-26 14:26] LABS: Alanine Aminotransferase 16 U/L (0-33); Albumin Level 4.2 g/dL (3.5-5.2); Alkaline Phosphatase 100 U/L (35-105); Anion Gap 16.2 (5-19); Aspartate Amino Transferase 17 U/L (0-32); Blood Urea Nitrogen 20 mg/dL (6-20); Calcium 9.5 mg/dL (8.5-10.5); Carbon Dioxide 24 mmol/L (22-29); Chloride 104 mmol/L (98-107); Cholesterol 180 mg/dL (0-200); Globulin 2.9 g/dL (1.3-4.6); Glucose 171 mg/dL (65-115); HDL Cholesterol 60 mg/dL (60-100); LDL Cholesterol Calculated 90 mg/dL (50-129); Magnesium 1.8 mg/dL (1.7-2.3); Osmolality Calculated 299 mOsm/kg (285-295); Potassium 3.2 mmol/L (3.5-5.1); Sodium 141 mmol/L (136-145); Thyroid Stimulating Hormone 0.03 uIU/mL (0.27-4.20); Total Bilirubin 0.4 mg/dL (0.15-1.2); Total Protein 7.1 g/dL (6.6-8.7); Triglycerides 152 mg/dL (0-150)
[2022-07-26 14:29] LABS: Parathyroid Hormone 53.3 pg/mL (15-65)
[2022-07-26 14:40] LABS: Ferritin 156 ng/mL (15-150); Iron 64 ug/dL (37-145); Percent Saturation 23.5 % (20-50); Total Iron Binding Capacity 272 mcg/dl; Unsaturated Iron Binding 208 ug/dL (112-347)
[2022-07-26 14:57] LABS: Folate Level > 20.0 ng/mL (4.8-37.3); Vitamin B12 1116 pg/mL (232-1245)
[2022-07-30 15:34] LABS: Zinc Level, Serum or Plasma 59 mcg/dL (60-130)
[2022-07-31 13:43] LABS: Vit D 1,25 (Oh)2, Total 46 pg/mL (18-72); Vit D2 1,25 (Oh)2 <8 pg/mL; Vit D3 1,25 (Oh)2 46 pg/mL
[2022-08-01 10:03] LABS: Vitamin B1(Thiamin) Plas/Ser 24 nmol/L (8-30)
== END 2022-07-26 13:18 | disposition home or self-care (01) ==
PROVIDERS: Visit Provider Surgery
DX: Z98.84 Bariatric surgery status (principal); E03.9 Hypothyroidism, unspecified; Z79.899 Other long term (current) drug therapy
CPT/HCPCS: 80053; 80061; 82310; 82607; 82652; 82728; 82746; 83540; 83550; 83735; 83970; 84425; 84443; 84630; 85025; 99024

== ENCOUNTER → 2022-10-24 12:51 | Outpatient (BNVA) | payer MEDICAID, SELFPAY | PROVIDERS: Visit Provider Surgery | DX: Z98.84 Bariatric surgery status (principal) | CPT/HCPCS: 99213 ==